=== PATIENT | male | born 1995 | race Caucasian/White ===

== ENCOUNTER 2024-08-06 10:16 | Emergency (ER) | payer MEDICAID, SELFPAY ==
[2024-08-06] VITALS (11 sets, daily range): BP systolic 134–179; BP diastolic 100–127; PULSE 66–81; RESP 12–20; TEMP 36.8–37.1; O2SAT 98–100; BMI 29.3
--- NOTE | 2024-08-06 10:39 | EKG12_ITS ---
Test Reason : Blood Pressure : */* mmHG Vent. Rate : 73 BPM Atrial Rate : 73 BPM P-R Int : 186 ms QRS Dur : 98 ms QT Int : 366 ms P-R-T Axes : 67 19 44 degrees QTcB Int : 403 ms Normal sinus rhythm Normal ECG No previous ECGs available Confirmed by Álvaro Teague ([id number]), web editor RANDOLPH HOLCOMB ([id number]) on 08/10/2024 10:08:55 AM Referred By: Confirmed By: Álvaro Teague
[2024-08-06 10:53] LABS: Absolute Lymphocyte Count 1.31 X10^3/uL (0.83-4.51); Absolute Neutrophil Count 8.9 X10^3/uL (2.0-7.7); Basophil# 0.07 X10^3/uL; Basophil% 0.6 % (0-1); Eosinophil# 0.08 X10^3/uL; Eosinophils% 0.7 % (0-5); Hematocrit 44.8 % (40-54); Lymphocyte # 1.31 X10^3/ul (0.83-4.51); Lymphocyte % 11.8 % (19-41); Mean Corp Hgb Conc 35.7 g/dL (32-36); Mean Corpuscular Hgb 29.6 pg (27.0-32.0); Mean Platelet Vol. 10.9 fl (6.2-12.0); Monocyte# 0.67 X10^3/uL; NRBC Flagged by Analyzer 0 % (0-5); Neutrophil # 8.94 X10^3/uL (2.7-7.7); Neutrophil % 80.6 % (47-70); Platelet Count 262 K/mm3 (150-450); RBC Distribution Width CV 12.5 % (11.6-14.6); White Blood Count 11.1 K/mm3 (4.4-11.0)
[2024-08-06] MEDS: Ondansetron 4 MG/2 ML Vial IV (11:04)
[2024-08-06] MEDS: 0.9% Normal Saline (1000mL) 1,000 ML 999 ML IV (11:14)
[2024-08-06 11:15] LABS: Alcohol, Blood (Medical)-Serum < 10.1 mg/dL (<=10.0)
[2024-08-06 11:16] LABS: AST(SGOT) 25 U/L (<=37); Alanine Aminotransfer ALT/SGPT 22 U/L (<=46); Albumin, Serum 5.3 g/dL (3.5-5.0); Alkaline Phosphatase 99 U/L (40-129); Anion Gap 16 (5-15); BUN 15 mg/dL (4-19); BUN/Creat Ratio 13.8 RATIO (10-20); Bilirubin, Direct 0.28 mg/dL (0.00-0.30); Calcium,Total 10.4 mg/dL (7.6-11.0); Carbon Dioxide 22.8 mmol/L (21.0-32.0); Chloride 99 mmol/L (98-108); EST Glomerular Filtration Rate 92 (>60); Estimated Creatinine Clearance 135.34 ml/min (50-250); Globulin 3.3 g/dL (2.2-4.2); Glucose 124 mg/dL (70-99); Lipase 35 U/L (13-75); Potassium 3.4 mmol/L (3.3-5.1); Protein, Total 8.5 g/dL (5.9-8.4); Sodium Level 138 mmol/L (133-145)
[2024-08-06 11:24] LABS: Bedside Glucose 130 mg/dL (74-106)
--- NOTE | 2024-08-06 11:43 | EX.ED.DYSGE1 ---
HPI History of Present Illness Chief Complaint: Overdose Informant: patient and EMS Narrative Narrative: 29-year-old male presenting to the emergency room after intentional overdose as a way to self-harm. Patient states that he texted his this morning and she requested that they . He states that he did not feel like it was worth going on so he took reportedly 60 tablets of 20 mg propranolol, 55 tablets of 75 mg venlafaxine, and 4 tablets of 15 mg Adderall. Patient states he does not feel that it is affecting him because he did a lot of drugs in the past and he has a tolerance. He notes that he was hospitalized when he was a freshman in high school due to intentional drug overdose. He currently sees psychiatry and a counselor. He notes recreational cannabis use. EMS administered charcoal. [facility] Medical History ADHD Depression Home Medications ?Medication ?Instructions ?Recorded ?Last Taken ?Type sertraline 50 mg tablet 50 mg PO DAILY 08/06/24 Unknown History Allergy/AdvReac Type Severity Reaction Status Date / Time No Known Allergies Allergy Verified 08/06/24 10:22 Social History Smoking Status: Never smoker ROS ROS ED Constitutional Constitutional ED: Denies chills or weight loss Eyes Eyes: Denies change in vision or diplopia ENT ENT ED: Denies ear pain, rhinorrhea or sore throat Cardiovascular Cardiovascular: Denies chest pain, orthopnea, palpitations or racing heartbeat Respiratory/Chest Respiratory/Chest: Denies cough, dyspnea or orthopnea Gastrointestinal Gastrointestinal: Denies abdominal pain, diarrhea, nausea or vomiting Genitourinary Genitourinary ED: Denies dysuria, hematuria or urinary frequency Musculoskeletal Musculoskeletal: Denies arthralgias or myalgias Integumentary Denies abscess or rash Neurologic Neurologic: Denies headache(s) or weakness Psychiatric Psychiatric: Reports depression, suicidal ideation and suicidal thoughts; Denies anxiety Endocrine Endocrinology: Denies polydipsia, polyphagia or polyuria Allergic/Immunologic Allergic/Immunologic ED: Denies mouth swelling, tongue swelling or urticaria EXAM Physical Exam Const Vital Signs: 08/06/24 10:16 08/06/24 11:13 08/06/24 12:00 Temperature 98.7 F Temperature Source Temporal Pulse Rate 75 75 72 Respiratory Rate 18 15 20 H Blood Pressure 179/123 H 164/119 H 151/123 H Blood Pressure Mean 141 134 132 Pulse Ox 99 100 99 Oxygen Delivery Method Room Air Room Air Room Air 08/06/24 13:43 Temperature Temperature Source Pulse Rate 68 Respiratory Rate 12 Blood Pressure 152/122 H Blood Pressure Mean 132 Pulse Ox 99 Oxygen Delivery Method Positive well nourished and well developed General Appearance ED: well developed HEENT Reports normocephalic, head/scalp atraumatic and moist mucous membranes Eyes PERRL and EOMs intact bilaterally Eyes Narrative: Pupils are 4 mm and reactive bilaterally Neck no lymphadenopathy, supple and no JVD Resp normal respiratory effort and clear to auscultation bilaterally Cardio regular rate, regular rhythm and no murmurs GI normal to inspection, nondistended, normoactive bowel sounds and non-tender Palpation: soft Back/Spine no CVA tenderness and normal ROM Extremity normal to inspection General Extremety ED: Negative for edema General Extremity: Negative for edema Neuro oriented x3 and CN's II-XII intact bilaterally Sensorium / Orientation: alert Motor Exam: strength 5/5 throughout Psych Psych Narrative: Blunted affect. Admits to intentional drug overdose. Mood & Affect: depressed; Negative for tearful Skin no rashes or lesions noted and no wounds Skin Narrative: Patient appears pale and diaphoretic. MDM MDM MDM Narrative Medical decision making narrative: Differential diagnosis includes but not limited to cardiac dysrhythmia hypotension suicidal attempt drug overdose nausea vasovagal reaction Patient received Zofran. His Accu-Chek is 130. Basic blood work showed a white count 11.1 hemoglobin of 16 platelet count of 262. His EKG is normal sinus rhythm with a rate of 73 bpm. No QT is prolongation is noted. No QRS widening. Urine toxicology is positive for anemia and adenoids vitamins. Patient received IV fluids. Will continue to monitor him. He continues to be pale and diaphoretic however his father states he is not unusual to look pale does not feel he is any different than at baseline. This diaphoresis is intermittent. Will continue to observe him and have crisis evaluate him after the 6-hour carlos. History & Record Review Discussion w/independent historian: EMS personnel and Patient Lab Data Attestation: I reviewed the patient's lab results. Labs: Laboratory Results - last 24 hr 0408/06/24 08/06/24 10:46 11:04 11:50 WBC 11.1 H RBC 5.40 Hgb 16.0 Hct 44.8 MCV 83.0 MCH 29.6 MCHC 35.7 RDW Std Deviation 38.0 RDW Coeff of Ambreen 12.5 Plt Count 262 MPV 10.9 Immature Gran % (Auto) 0.300 Neut % (Auto) 80.6 H Lymph % (Auto) 11.8 L Lamb % (Auto) 6.0 Eos % (Auto) 0.7 Baso % (Auto) 0.6 Absolute Neuts (auto) 8.9 H Absolute Lymphs (auto) 1.31 Nucleated RBC % 0 Sodium 138 Potassium 3.4 Chloride 99 Carbon Dioxide 22.8 Anion Gap 16 H BUN 15 Creatinine 1.10 Estim Creat Clear Calc 135.34 Est GFR (MDRD) Non-Af 92 BUN/Creatinine Ratio 13.8 Glucose 124 H Calcium 10.4 Total Bilirubin 0.70 Direct Bilirubin 0.28 AST 25 ALT 22 Alkaline Phosphatase 99 Total Protein 8.5 H Albumin 5.3 H Globulin 3.3 Lipase 35 Urine Color Yellow Urine Clarity Sl. Cloudy Urine pH 6.0 Ur Specific Henderson 1.020 Urine Protein 30 H Urine Glucose (UA) Normal Urine Ketones 50 H Urine Occult Blood Negative Urine Nitrite Negative Urine Bilirubin 3 H Urine Urobilinogen 1 H Ur Leukocyte Esterase 25 H Urine RBC 0 SEEN Urine WBC 0-5 SEEN Ur Squamous Epith Cells 0-5 SEEN Urine Bacteria 1+ Urine Mucus RARE Urine Opiates Screen NEGATIVE U Buprenorphine Qual NEGATIVE Ur Oxycodone Screen NEGATIVE Urine Methadone Screen NEGATIVE Urine Fentanyl Screen NEGATIVE Ur Barbiturates Screen NEGATIVE Ur Phencyclidine Scrn NEGATIVE Ur Amphetamines Screen PRESUMPTIVE POSITIVE U Benzodiazepines Scrn NEGATIVE Urine Cocaine Screen NEGATIVE U Cannabinoids Screen PRESUMPTIVE POSITIVE Ethyl Alcohol < 10.1 POC Glucose 130 H EKG Initial EKG: Attestation: I personally reviewed and interpreted this EKG as follows: Comments: Normal sinus rhythm ventricular rate of 73 bpm Management Discussion w/another healthcare provider: Hospitalist Discharge Plan Triage Chief Complaint: Overdose ED Provider: Boy Howell Dx/Rx/DC Orders Clinical Impression: Drug overdose, intentional, Diaphoresis, Nausea Prescriptions: No Action sertraline 50 mg tablet 50 mg PO DAILY Primary Care Provider: Care Physician,No Primary Referrals: NOT,DEFINED [Non-Staff] - Print Language: Surinamese
[2024-08-06 11:56] LABS: Color, Urine Yellow (Yellow); Glucose, Dipstick Normal (Normal); Ketone-Dipstick 50 mg/dl (Negative); Leukocyte Esterase-Dipstick 25 /ul (Negative); Nitrite-Dipstick Negative (Negative); Occult Blood-Urine Negative /ul (Negative); Protein-Dipstick 30 mg/dl (Negative); Red Blood Cells-Urine 0 SEEN /hpf (0-5); Urine Clarity Sl. Cloudy (Clear); Urine Urobilinogen 1 mg/dl (Normal)
[2024-08-06 11:57] LABS: Urine Bilirubin Dipstick 3 mg/dL (Negative)
[2024-08-06 12:02] LABS: Bacteria 1+ /hpf (None Seen); Mucous, Urine RARE /hpf (<or=2+); Squamous Epithelial Cells - UA 0-5 SEEN /hpf (0-5); White Blood Cells 0-5 SEEN /hpf (0-5)
[2024-08-06 12:20] LABS: Amphetamine Urine PRESUMPTIVE POSITIVE (<1000 ng/mL); Barbiturate Urine NEGATIVE (< 200 ng/mL); Benzodiazepine Urine NEGATIVE (< 200 ng/mL); Buprenorphine Urine NEGATIVE (< 200 ng/mL); Cocaine Urine NEGATIVE (< 300 ng/mL); Fentanyl, Urine NEGATIVE; Methadone Urine NEGATIVE (< 300 ng/mL); Opiates Urine NEGATIVE (< 300 ng/mL); Oxycodone, Urine NEGATIVE (< 100 ng/mL); PCP Urine NEGATIVE (< 25 ng/mL); THC Urine PRESUMPTIVE POSITIVE (< 50 ng/mL)
--- NOTE | 2024-08-06 16:12 | PCA ---
CALLED CRISIS AT 1602. GOING TO FAX EVERYTHING OVER WHEN MEDICALLY CLEARED AT 6 HRS.
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
--- NOTE | 2024-08-06 20:43 | CM.ED ---
Social Work: recording studio setup worker made phone contact with [facility] [place]: No open beds [facility]: Spoke with Em: has an open bed, child welfare social worker faxed over referral and patient accepted. Accepting doctor: Dr. Boubacar Jones. NTN: [phone], option 2. recording studio setup worker will update patient and will send over pink slip. Facility requesting ED nurse to call their facility to notify them once transportation is scheduled to admissions can be on the look out for patient and can prepare for patient. Milena Hdez, POINTER HELPER, HIDE MILL WORKER
--- NOTE | 2024-08-06 20:50 | CM.ED ---
Social Work: [employer] Technology Development Manager provided nursing and patient update. Patient in good spirit, sitting up in bed and talking with the sitter. No objections with placement. blow off worker faxed over pink slip to receiving facility. No additional needs/follow up by bilingual social worker at this time. Milena Hdez, HAND SAMPLE MAKER, MAGNETIC OBSERVER
== END 2024-08-06 23:33 ==
PROVIDERS: Emergency Provider Emergency Medicine; Visit Provider Emergency Medicine
DX: T44.7X2A Poisoning by beta-adrenoreceptor antagonists, intentional self-harm, initial encounter (principal); T43.212A Poisoning by selective serotonin and norepinephrine reuptake inhibitors, intentional self-harm, initial encounter; T43.622A Poisoning by amphetamines, intentional self-harm, initial encounter; R61 Generalized hyperhidrosis; R11.0 Nausea; I10 Essential (primary) hypertension; F32.A Depression, unspecified; F90.9 Attention-deficit hyperactivity disorder, unspecified type
CPT/HCPCS: 93005; 99285; A4216; J2405